=== PATIENT | male | born 1960 | race African-American/Black ===

== ENCOUNTER 2021-04-14 11:26 | Inpatient (IN) | payer MEDICAID ==
[~2021-04-14] VITALS: Ht 177.8 cm; Wt 104.3 kg
[2021-04-14] MEDS ORDERED: MORPHINE SULFATE 4 MG/ML CPJ (NOT FOR IM USE) IV ONE (13:30)
[2021-04-14 14:12] LABS: BASOPHILS % 0.8 % (0.0-2.0); EOSINOPHILS % 0.9 % (0.0-5.0); HEMATOCRIT. 43.5 % (42.0-52.0); HEMOGLOBIN. 14.3 g/dL (14.0-18.0); LYMPHOCYTES % 23.4 % (20.0-50.0); MEAN CORPUSCULAR HEMOGLOBIN 27.5 pg (28.0-32.0); MEAN CORPUSCULAR VOLUME 83.8 fL (80.0-94.0); MEAN PLATELET VOLUME 9.4 fl (7.4-10.4); MONOCYTES % 8.1 % (2.0-8.0); NEUTROPHILS % 66.8 % (40.0-76.0); PLATELET 311 x1000/uL (130-400); RED BLOOD CELL COUNT 5.19 mill/uL (4.7-6.1); RED CELL DISTRIBUTION WIDTH 14.7 % (11.6-14.6)
[2021-04-14 14:20] LABS: CHLORIDE 106 mEq/L (98-107)
[2021-04-14 14:53] LABS: PROTHROMBIN TIME 10.9 sec (9.6-11.0)
[2021-04-14] MEDS ORDERED: MORPHINE SULFATE 2 MG/ML CPJ (NOT FOR IM USE) IV PRN (18:00)
[2021-04-14 20:50] VITALS: BP 142/82
[2021-04-14 22:06] VITALS: BP 142/82
[2021-04-14] MEDS ORDERED: POTASSIUM CHLORIDE 20MEQ TABLET SR PO NR (23:00)
[2021-04-14] MEDS: MORPHINE SULFATE 2 MG/ML CPJ (NOT FOR IM USE) IV PRN (23:09)
[2021-04-15] VITALS: BP 144/79
[2021-04-15] MEDS: MORPHINE SULFATE 2 MG/ML CPJ (NOT FOR IM USE) IV PRN ×3 (03:11→20:20)
[2021-04-15 04:00] VITALS: BP 125/79
[2021-04-15 06:56] LABS: BASOPHILS % 0.2 % (0.0-2.0); EOSINOPHILS % 0.5 % (0.0-5.0); HEMATOCRIT. 40.5 % (42.0-52.0); HEMOGLOBIN. 13.4 g/dL (14.0-18.0); LYMPHOCYTES % 15.2 % (20.0-50.0); MEAN CORPUSCULAR HEMOGLOBIN 27.7 pg (28.0-32.0); MEAN CORPUSCULAR VOLUME 83.4 fL (80.0-94.0); MEAN PLATELET VOLUME 9.1 fl (7.4-10.4); MONOCYTES % 12.2 % (2.0-8.0); NEUTROPHILS % 71.9 % (40.0-76.0); PLATELET 269 x1000/uL (130-400); RED BLOOD CELL COUNT 4.85 mill/uL (4.7-6.1); RED CELL DISTRIBUTION WIDTH 14.6 % (11.6-14.6)
[2021-04-15 07:08] LABS: CHLORIDE 102 mEq/L (98-107)
[2021-04-15] MEDS ORDERED: HYDROMORPHONE HCL/PF 2MG/ML CPJ IV PRN (07:30)
[2021-04-15 08:00] VITALS: BP_SYST 130; BP_SYST 136; BP_DIAS 60; BP_DIAS 82
[2021-04-15] MEDS ORDERED: PNEUMOCOCCAL 23-VAL P-SAC VAC 0.5 ML IM ONE (08:00)
[2021-04-15] MEDS: ENOXAPARIN 30MG/0.3ML SYR SUBCUT SCH ×2 (09:03→21:00)
[2021-04-15] MEDS: METOPROLOL TARTRATE 50MG TABLET PO SCH ×2 (09:04→20:17)
[2021-04-15] MEDS: FAMOTIDINE 20MG TABLET PO SCH ×2 (09:04→20:17)
[2021-04-15] MEDS: MORPHINE SULFATE 4 MG/ML CPJ (NOT FOR IM USE) IV PRN ×2 (11:52→16:24)
[2021-04-15 12:00] VITALS: BP 126/80
[2021-04-15 16:00] VITALS: BP 144/78
[2021-04-15 20:00] VITALS: BP 143/85
[2021-04-16] VITALS: BP 136/83
[2021-04-16] MEDS: MORPHINE SULFATE 2 MG/ML CPJ (NOT FOR IM USE) IV PRN ×4 (00:06→22:28)
[2021-04-16 04:00] VITALS: BP 126/79
[2021-04-16] MEDS ORDERED: BUPIVACAINE HCL/PF 0.5% (5MG/ML) 10ML ONE (06:44)
[2021-04-16] MEDS ORDERED: BUPIVACAINE HCL/PF 0.25% (2.5MG/ML) 10ML ONE (06:44)
[2021-04-16] MEDS ORDERED: VANCOMYCIN HCL 1 GM/VIAL ONE (06:44)
[2021-04-16 07:14] LABS: CLARITY URINE CLEAR (CLEAR); COLOR URINE YELLOW (YELLOW); KETONES URINE TRACE (NEGATIVE); LEUKOCYTE ESTERASE URINE 2+ (NEGATIVE); NITRITE URINE NEGATIVE (NEGATIVE); OCCULT BLOOD URINE NEGATIVE (NEGATIVE); PROTEIN URINE NEGATIVE (NEGATIVE); SPECIFIC GRAVITY URINE 1.027 (1.005-1.030); UROBILINOGEN URINE 0.2 E.U./dL (0.2-1.0)
[2021-04-16] MEDS ORDERED: PHENYLEPHRINE HCL 10 MG/ML 1ML (IV VIAL) IV ONE (07:41)
[2021-04-16] MEDS ORDERED: GLYCOPYRROLATE 0.2 MG/ML 2ML VIAL ONE (07:41)
[2021-04-16] MEDS ORDERED: FENTANYL CITRATE/PF 50MCG/ML 2ML VIAL ONE ×3 (07:41→09:12)
[2021-04-16] MEDS ORDERED: MIDAZOLAM HCL 2 MG/2 ML VIAL ONE (07:41)
[2021-04-16] MEDS ORDERED: PROPOFOL 200MG/20ML VIAL IV ONE (07:41)
[2021-04-16] MEDS ORDERED: NEOSTIGMINE METHYLSULFATE 1MG/ML 10 ML VIAL ONE (07:41)
[2021-04-16] MEDS ORDERED: ROCURONIUM BROMIDE 10MG/ML VIAL 5ML IV ONE (07:41)
[2021-04-16] MEDS ORDERED: SODIUM CHLORIDE 0.9% 10ML VIAL ONE (07:42)
[2021-04-16] MEDS ORDERED: SUCCINYLCHOLINE CHLORIDE 200MG/10ML IV ONE (07:42)
[2021-04-16] MEDS ORDERED: METOCLOPRAMIDE HCL 10MG/2ML VIAL ONE (07:42)
[2021-04-16] MEDS ORDERED: CEFAZOLIN SODIUM 1000MG/VIAL ONE (07:42)
[2021-04-16] MEDS ORDERED: ONDANSETRON HCL 4MG/2ML INJ ONE (07:42)
[2021-04-16] MEDS ORDERED: EPHEDRINE SULFATE 50MG/ML VIAL ONE (07:42)
[2021-04-16] MEDS ORDERED: ROPIVACAINE HCL 10MG/ML 20 ML VIAL EPI ONE ×2 (08:20→08:21)
[2021-04-16] MEDS: FAMOTIDINE 20MG TABLET PO SCH ×2 (09:00→22:28)
[2021-04-16] MEDS: ENOXAPARIN 30MG/0.3ML SYR SUBCUT SCH ×2 (09:00→22:31)
[2021-04-16] MEDS: METOPROLOL TARTRATE 50MG TABLET PO SCH ×2 (09:00→22:28)
[2021-04-16] MEDS ORDERED: HYDROMORPHONE HCL/PF 2MG/ML (OR) ONE (09:37)
[2021-04-16] MEDS ORDERED: HYDROMORPHONE HCL/PF 2MG/ML CPJ IV PRN (10:15)
[2021-04-16] MEDS ORDERED: MEPERIDINE HCL/PF 25MG/ML CPJ IV PRN ×2 (10:15)
[2021-04-16] MEDS ORDERED: SODIUM CHLORIDE 0.9% 1,000 ML IV ONE (10:15)
[2021-04-16] MEDS ORDERED: ONDANSETRON HCL 4MG/2ML INJ IV PRN (10:15)
[2021-04-16] MEDS ORDERED: MORPHINE SULFATE 2 MG/ML CPJ (NOT FOR IM USE) IV PRN (10:15)
[2021-04-16 12:00] VITALS: BP 134/94
[2021-04-16] MEDS: CEFAZOLIN 2,000 MG in DEXT 5% WATER 100 ML IV SCH ×2 (12:57→22:41)
[2021-04-16 20:00] VITALS: BP 143/78
[2021-04-16] MEDS: HYDROCODONE/ACETAMINOPHEN 10/325MG TABLET PO PRN (23:16)
[2021-04-17] VITALS: BP_SYST 122; BP_SYST 142; BP_DIAS 47; BP_DIAS 76
[2021-04-17] MEDS: MORPHINE SULFATE 2 MG/ML CPJ (NOT FOR IM USE) IV PRN ×5 (02:09→21:01)
[2021-04-17 04:00] VITALS: BP 152/85
[2021-04-17] MEDS: HYDROCODONE/ACETAMINOPHEN 10/325MG TABLET PO PRN ×3 (04:32→18:03)
[2021-04-17] MEDS: CEFAZOLIN 2,000 MG in DEXT 5% WATER 100 ML IV SCH ×3 (04:32→20:59)
[2021-04-17 08:00] VITALS: BP 114/69
[2021-04-17] MEDS: MULTIVITAMINS,THER W-MINERALS TABLET PO SCH (08:43)
[2021-04-17] MEDS: ENOXAPARIN 30MG/0.3ML SYR SUBCUT SCH ×2 (08:43→21:14)
[2021-04-17] MEDS: FAMOTIDINE 20MG TABLET PO SCH ×2 (08:43→20:59)
[2021-04-17] MEDS: METOPROLOL TARTRATE 50MG TABLET PO SCH ×2 (08:43→21:00)
[2021-04-17 12:00] VITALS: BP 122/64
[2021-04-17 16:00] VITALS: BP 105/63
[2021-04-17 20:00] VITALS: BP 137/69
[2021-04-18] VITALS: BP 110/74
[2021-04-18] MEDS ORDERED: ACETAMINOPHEN 325MG TABLET PO PRN (00:15)
[2021-04-18] MEDS: MORPHINE SULFATE 2 MG/ML CPJ (NOT FOR IM USE) IV PRN ×5 (02:24→22:24)
[2021-04-18] MEDS: HYDROCODONE/ACETAMINOPHEN 10/325MG TABLET PO PRN ×4 (03:34→21:14)
[2021-04-18] MEDS: CEFAZOLIN 2,000 MG in DEXT 5% WATER 100 ML IV SCH ×3 (03:39→21:15)
[2021-04-18 04:00] VITALS: BP 123/65
[2021-04-18] MEDS: METOPROLOL TARTRATE 50MG TABLET PO SCH ×2 (09:09→21:00)
[2021-04-18] MEDS: FAMOTIDINE 20MG TABLET PO SCH ×3 (09:09→21:13)
[2021-04-18] MEDS: MULTIVITAMINS,THER W-MINERALS TABLET PO SCH (09:09)
[2021-04-18] MEDS: ENOXAPARIN 30MG/0.3ML SYR SUBCUT SCH ×3 (09:10→21:14)
[2021-04-18 10:49] VITALS: BP 134/81
[2021-04-18 12:00] VITALS: BP 127/74
[2021-04-18 16:00] VITALS: BP 135/80
[2021-04-18] MEDS: DOCUSATE SODIUM 100MG CAPSULE PO SCH (18:15)
[2021-04-18 19:17] LABS: BASOPHILS % 0.2 % (0.0-2.0); EOSINOPHILS % 0.5 % (0.0-5.0); HEMATOCRIT. 35.9 % (42.0-52.0); HEMOGLOBIN. 11.7 g/dL (14.0-18.0); LYMPHOCYTES % 8.4 % (20.0-50.0); MEAN CORPUSCULAR HEMOGLOBIN 27.2 pg (28.0-32.0); MEAN CORPUSCULAR VOLUME 83.5 fL (80.0-94.0); MEAN PLATELET VOLUME 9.2 fl (7.4-10.4); MONOCYTES % 14.2 % (2.0-8.0); NEUTROPHILS % 76.7 % (40.0-76.0); PLATELET 274 x1000/uL (130-400)
[2021-04-18 19:24] LABS: CHLORIDE 100 mEq/L (98-107)
[2021-04-18 20:00] VITALS: BP 146/78
[2021-04-19] VITALS: BP 109/69
[2021-04-19] MEDS: MORPHINE SULFATE 2 MG/ML CPJ (NOT FOR IM USE) IV PRN ×5 (02:00→21:41)
[2021-04-19] MEDS: CEFAZOLIN 2,000 MG in DEXT 5% WATER 100 ML IV SCH ×2 (03:04→12:00)
[2021-04-19 04:00] VITALS: BP 142/67
[2021-04-19] MEDS: HYDROCODONE/ACETAMINOPHEN 10/325MG TABLET PO PRN ×3 (04:07→20:03)
[2021-04-19] MEDS: MULTIVITAMINS,THER W-MINERALS TABLET PO SCH (09:35)
[2021-04-19] MEDS: FAMOTIDINE 20MG TABLET PO SCH ×2 (09:35→20:02)
[2021-04-19] MEDS: DOCUSATE SODIUM 100MG CAPSULE PO SCH ×2 (09:35→17:58)
[2021-04-19] MEDS: METOPROLOL TARTRATE 50MG TABLET PO SCH ×2 (09:36→20:04)
[2021-04-19] MEDS: ENOXAPARIN 30MG/0.3ML SYR SUBCUT SCH ×2 (09:38→20:02)
[2021-04-19 20:00] VITALS: BP 99/83
[2021-04-20] VITALS: BP 155/78
[2021-04-20] MEDS: HYDROCODONE/ACETAMINOPHEN 10/325MG TABLET PO PRN ×3 (01:03→23:47)
[2021-04-20] MEDS: MORPHINE SULFATE 2 MG/ML CPJ (NOT FOR IM USE) IV PRN ×4 (02:08→17:31)
[2021-04-20 04:00] VITALS: BP 140/74
[2021-04-20 08:00] VITALS: BP 143/76
[2021-04-20] MEDS: DOCUSATE SODIUM 100MG CAPSULE PO SCH ×2 (08:33→17:27)
[2021-04-20] MEDS: FAMOTIDINE 20MG TABLET PO SCH ×2 (08:33→21:34)
[2021-04-20] MEDS: METOPROLOL TARTRATE 50MG TABLET PO SCH ×2 (08:34→21:34)
[2021-04-20] MEDS: ENOXAPARIN 30MG/0.3ML SYR SUBCUT SCH ×2 (08:35→21:34)
[2021-04-20] MEDS: MULTIVITAMINS,THER W-MINERALS TABLET PO SCH (08:43)
[2021-04-20 12:00] VITALS: BP 128/79
[2021-04-20 20:00] VITALS: BP 133/82
[2021-04-20] MEDS ORDERED: MORPHINE SULFATE 4 MG/ML CPJ (NOT FOR IM USE) IV PRN (20:45)
[2021-04-20] MEDS ORDERED: HYDROCODONE/ACETAMINOPHEN 10/325MG TABLET PO PRN (20:45)
[2021-04-21] VITALS: BP 132/51
[2021-04-21] MEDS: ZOLPIDEM TARTRATE 5MG TABLET PO PRN ×2 (00:42→23:08)
[2021-04-21 04:00] VITALS: BP 133/83
[2021-04-21] MEDS: HYDROCODONE/ACETAMINOPHEN 10/325MG TABLET PO PRN ×3 (04:14→18:20)
[2021-04-21 08:00] VITALS: BP 127/86
[2021-04-21] MEDS: MULTIVITAMINS,THER W-MINERALS TABLET PO SCH (08:35)
[2021-04-21] MEDS: DOCUSATE SODIUM 100MG CAPSULE PO SCH ×3 (08:35→18:19)
[2021-04-21] MEDS: FAMOTIDINE 20MG TABLET PO SCH ×2 (08:35→20:34)
[2021-04-21] MEDS: ENOXAPARIN 30MG/0.3ML SYR SUBCUT SCH ×2 (08:36→20:34)
[2021-04-21] MEDS: METOPROLOL TARTRATE 50MG TABLET PO SCH ×2 (08:37→20:34)
[2021-04-21] MEDS ORDERED: LACTULOSE 20G/30ML UDC PO NR (08:45)
[2021-04-21] MEDS ORDERED: MORPHINE SULFATE 2 MG/ML CPJ (NOT FOR IM USE) IV NR (09:15)
[2021-04-21 12:00] VITALS: BP 149/87
[2021-04-21 16:00] VITALS: BP 139/80
[2021-04-21 20:00] VITALS: BP 135/85
[2021-04-22] VITALS: BP 130/85
[2021-04-22 04:00] VITALS: BP 133/80
[2021-04-22 08:00] VITALS: BP 141/85
[2021-04-22] MEDS: FAMOTIDINE 20MG TABLET PO SCH ×2 (08:24→21:30)
[2021-04-22] MEDS: METOPROLOL TARTRATE 50MG TABLET PO SCH ×2 (08:24→21:31)
[2021-04-22] MEDS: DOCUSATE SODIUM 100MG CAPSULE PO SCH ×2 (08:24→18:02)
[2021-04-22] MEDS: HYDROCODONE/ACETAMINOPHEN 10/325MG TABLET PO PRN ×3 (08:26→21:31)
[2021-04-22] MEDS: MULTIVITAMINS,THER W-MINERALS TABLET PO SCH (08:27)
[2021-04-22] MEDS: ENOXAPARIN 30MG/0.3ML SYR SUBCUT SCH ×2 (08:29→21:32)
[2021-04-22 12:00] VITALS: BP 123/85
[2021-04-22] MEDS ORDERED: HYDR-4009 PO (12:59)
[2021-04-22] MEDS ORDERED: AMLO10TA80 MT (12:59)
[2021-04-22] MEDS ORDERED: DOCU-150 PO (12:59)
[2021-04-22] MEDS ORDERED: HYDR-4009 MT (13:00)
[2021-04-22 13:03] VITALS: BP 123/85
[2021-04-22 16:00] VITALS: BP 135/76
[2021-04-22] MEDS: ZOLPIDEM TARTRATE 5MG TABLET PO PRN (21:30)
[2021-04-23] MEDS: HYDROCODONE/ACETAMINOPHEN 10/325MG TABLET PO PRN ×3 (03:48→16:51)
[2021-04-23 04:00] VITALS: BP 124/76
[2021-04-23 08:00] VITALS: BP 136/77
[2021-04-23] MEDS: ENOXAPARIN 30MG/0.3ML SYR SUBCUT SCH (09:59)
[2021-04-23] MEDS: MULTIVITAMINS,THER W-MINERALS TABLET PO SCH (09:59)
[2021-04-23] MEDS: FAMOTIDINE 20MG TABLET PO SCH (09:59)
[2021-04-23] MEDS: DOCUSATE SODIUM 100MG CAPSULE PO SCH ×2 (09:59→16:41)
[2021-04-23] MEDS: METOPROLOL TARTRATE 50MG TABLET PO SCH (10:00)
[2021-04-23 12:00] VITALS: BP 130/70
[2021-04-23 16:00] VITALS: BP 132/80
[2021-04-23 20:00] VITALS: BP 138/87
== END 2021-04-23 21:45 | disposition home or self-care (01) | DRG 308 ==
LOC: ER 11:26 → 6EST 13:54 → ENRESERV 19:20
PROVIDERS: ADMIT Internal Medicine; ATTEND Internal Medicine
PROC: 0QSC04Z Reposition Left Lower Femur with Internal Fixation Device, Open Approach (ICD-10-PCS; principal; 2021-04-16)
DX: S72.462A Displaced supracondylar fracture with intracondylar extension of lower end of left femur, initial encounter for closed fracture (principal); E87.6 Hypokalemia; W11.XXXA Fall on and from ladder, initial encounter; I10 Essential (primary) hypertension; Z20.822 Contact with and (suspected) exposure to COVID-19; F17.210 Nicotine dependence, cigarettes, uncomplicated; Z71.6 Tobacco abuse counseling; Y93.89 Activity, other specified; Y92.89 Other specified places as the place of occurrence of the external cause; Y99.8 Other external cause status
CPT/HCPCS: 36415; 73552; 73560; 73700; 76000; 80048; 80053; 81003; 85025; 86850; 86900; 87426; 97110; 97116; 97162; 97530; 97535; 99285; C1713; J0330; J0690; J1170; J1650; J2250; J2270; J2370; J2405; J2704; J2710; J2765; J2795; J3010; J3370; J3490; J7042; J7060; C1762

== ENCOUNTER 2025-10-23 08:07 | Emergency (ER) | payer MEDICAID, OTHER ==
[~2025-10-23] VITALS: Ht 167.6 cm; Wt 79.0 kg
[~2025-10-23 08:07] MED LIST: AMLO10TA80 MT; DOCU-422 PO; HYDR-4009 MT; HYDR-4009 PO
[2025-10-23 08:08] VITALS: O2SAT 98
[2025-10-23 08:51] LABS: CREATININE 0.7 mg/dL (0.6-1.3); UREA NITROGEN BLOOD 7 mg/dL (9-23)
[2025-10-23 08:52] LABS: PROTEIN TOTAL 7.1 g/dL (6.0-8.3)
[2025-10-23 08:53] LABS: ASPARTATE AMINOTRANSFERASE 27 IU/L (<34); BILIRUBIN DIRECT 0.1 mg/dL (<=3.0); BILIRUBIN TOTAL 0.3 mg/dL (0.1-1.0)
[2025-10-23 09:02] LABS: BASOPHILS % 0.8 % (0.0-2.0); EOSINOPHILS % 2.4 % (0.0-5.0); HEMATOCRIT. 36.9 % (42.0-52.0); HEMOGLOBIN. 12.0 g/dL (14.0-18.0); LYMPHOCYTES % 16.3 % (20.0-50.0); MEAN PLATELET VOLUME 8.3 fl (7.4-10.4); MONOCYTES % 6.6 % (2.0-8.0); NEUTROPHILS % 73.9 % (40.0-76.0); PLATELET 338 x1000/uL (130-400); RED BLOOD CELL COUNT 4.37 mill/uL (4.7-6.1); RED CELL DISTRIBUTION WIDTH 14.8 % (11.6-14.6)
[2025-10-23 09:25] VITALS: BP 139/78; PULSE 65; RESP 18; TEMP 36.9; O2SAT 99
== END 2025-10-23 09:42 | disposition home or self-care (01) ==
LOC: ER 08:14
DX: S00.03XA Contusion of scalp, initial encounter (principal); S09.90XA Unspecified injury of head, initial encounter; I10 Essential (primary) hypertension; F14.10 Cocaine abuse, uncomplicated; Y08.89XA Assault by other specified means, initial encounter; Y93.89 Activity, other specified; Y92.89 Other specified places as the place of occurrence of the external cause; Y99.8 Other external cause status
CPT/HCPCS: 36415; 80048; 80076; 85025; 93005; 99284